=== PATIENT | female | born 1935 ===

== ENCOUNTER → 2017-12-07 | Emergency (ER) | payer SELFPAY, OTHER ==
[2017-12-07] MEDS: MECLIZINE 12.5 MG TAB PO (07:46)
[2017-12-07] MEDS: SOD CHLORIDE 0.9% 1,000 ML IV (07:46)
[2017-12-07 07:58] LABS: ADD MAN DIFF? NO
[2017-12-07 07:59] LABS: BASOPHILS % 0.5 % (0.0-2.0); EOSINOPHILS % 0.3 % (0.0-7.0); HEMATOCRIT 38.4 % (37.0-47.0); HEMOGLOBIN 12.5 g/dl (12.0-16.0); LYMPHOCYTES # 1.3 10^3/ul (0.8-2.9); LYMPHOCYTES % 35.4 % (15.0-51.0); MEAN CORPUSCULAR HEMOGLOBIN 29.4 pg (29.0-33.0); MEAN CORPUSCULAR HGB CONC 32.6 g/dl (32.0-37.0); MEAN CORPUSCULAR VOLUME 90.4 fl (82.0-101.0); MEAN PLATELET VOLUME 10.9 fl (7.4-10.4); MONOCYTE # 0.4 10^3/ul (0.3-0.9); MONOCYTES % 9.8 % (0.0-11.0); PLATELET COUNT 169 10^3/UL (140-415); RED BLOOD COUNT 4.25 10^6/ul (4.20-5.40); RED CELL DISTRIBUTION WIDTH 12.6 % (11.5-14.5)
[2017-12-07 07:59] LABS: WHITE BLOOD COUNT 3.8 10^3/ul (4.8-10.8)
[2017-12-07 08:19] LABS: ALANINE AMINOTRANSFERASE 25 IU/L (13-69); ALBUMIN/GLOBULIN RATIO 1.37; ALKALINE PHOSPHATASE 68 IU/L (42-121); ANION GAP 12 (8-16); ASPARTATE AMINO TRANSFERASE 26 IU/L (15-46); BILIRUBIN,INDIRECT 0.4 mg/dl (0-1.1); BILIRUBIN,TOTAL 0.4 mg/dl (0.2-1.3); BLOOD UREA NITROGEN 7 mg/dl (7-20); CALCIUM 9.4 mg/dl (8.4-10.2); CARBON DIOXIDE 27 mmol/L (21-31); CHLORIDE 106 mmol/L (97-110); CREATININE 0.67 mg/dl (0.44-1.00); GLUCOSE 102 mg/dl (70-220); POTASSIUM 4.1 mmol/L (3.5-5.1); SODIUM 141 mmol/L (135-144); TOTAL PROTEIN 6.9 g/dl (6.1-8.1)
[2017-12-07 08:31] LABS: TROPONIN-I < 0.010 ng/ml (0.000-0.120)
== END | disposition home or self-care (01) ==
LOC: E/R 06:29
DX: R42 Dizziness and giddiness (principal)
CPT/HCPCS: 71045; 80053; 84484; 85025; 99284-25